=== PATIENT | male | born 1950 | race Caucasian/White ===

== ENCOUNTER 2018-02-14 11:24 | Inpatient (IN) | payer MEDICARE, BC ==
[~2018-02-14] VITALS: Ht 182.9 cm; Wt 83.9 kg
[2018-02-14] VITALS (10 sets, daily range): BP systolic 103–120; BP diastolic 57–82
[2018-02-14] MEDS ORDERED: IV NORMAL SALINE 1000 ML BAG IV ONE (11:30)
[2018-02-14] MEDS ORDERED: [UNRECOGNIZED DRUG - REMARK] (11:43)
[2018-02-14] MEDS ORDERED: ASPI81TA31 PO (11:43)
[2018-02-14 11:50] LABS: BASOPHILS # (AUTO) 0.1 K/uL (0.0-8.0); BASOPHILS % (AUTO) 0.9 % (0.0-2.0); EOSINOPHILS # (AUTO) 0.2 K/uL (0.0-0.7); EOSINOPHILS % (AUTO) 2.6 % (0.0-7.0); HEMATOCRIT 40.7 % (36.7-47.1); LYMPHOCYTES # (AUTO) 1.7 K/uL (20.0-40.0); LYMPHOCYTES % (AUTO) 27.1 % (20.5-51.5); MEAN CORPUSCULAR HEMOGLOBIN 31.2 uug (23.8-33.4); MEAN CORPUSCULAR HGB CONC 34 g/dL (32.5-36.3); MEAN CORPUSCULAR VOLUME 90.8 fL (73.0-96.2); MONOCYTES # (AUTO) 0.4 K/uL (2.0-10.0); MONOCYTES % (AUTO) 6.2 % (0.0-11.0); NEUTROPHILS # (AUTO) 3.9 K/uL (1.8-8.9); NEUTROPHILS % (AUTO) 63.2 % (38.5-71.5); PLATELET COUNT (AUTO) 85 K/uL (152-348); RED BLOOD CELL COUNT(AUTO) 4.49 MIL/uL (4.06-5.63); WHITE BLOOD COUNT (AUTO) 6.2 K/uL (3.6-10.2)
[2018-02-14 11:58] LABS: POTASSIUM 4.1 mmol/L (3.5-5.1)
[2018-02-14 12:04] LABS: BILIRUBIN,DIRECT 0.3 mg/dL (0.0-0.2); BILIRUBIN,TOTAL 1.7 mg/dL (0.2-1.0); TOTAL PROTEIN, SERUM 5.4 g/dL (6.4-8.2)
--- NOTE | 2018-02-14 12:26 | NUR ---
called [facility],talked to kim, regarding transfer the pt to [facility] per pt request.
--- NOTE | 2018-02-14 12:43 | NUR ---
Patient is resting comfortably on gurney with eyes closed, denies pains, calm & breathing easily with spouse at bedside.
[2018-02-14 13:14] LABS: BAND % (MANUAL) 1 % (0-10); EOSINOPHILS % (MANUAL) 3 % (0-8); LYMPHOCYTES % (MANUAL) 26 % (20-40); MONOCYTES % (MANUAL) 7 % (2-10); NEUTROPHILS % (MANUAL) 63 % (42-75)
--- NOTE | 2018-02-14 14:13 | NUR ---
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 PT HAD RECEIVED DILAUDID DURING RECOVERY, AND BECAME HYPOTENSIVE FOLLOWED BY [facility]. PT WAS BROUGHT BY AMBULANCE AFTER REVIVING THE PT. PT IS NOW ALERT , CONSCIOUS ORIENTEDX4. PT HAS A LT PERIPHERAL LINE G20, A RT CLYDE DRAIN WITH AND AN ARM SLING ON RT ARM.
[2018-02-14] MEDS ORDERED: ONDANSETRON 4 MG/2 ML VIAL IV PRN (14:15)
[2018-02-14] MEDS ORDERED: ACETAMINOPHEN 325 MG TABLET PO PRN (14:15)
[2018-02-14] MEDS ORDERED: MAGNESIUM HYDROXIDE 30 ML LIQUID UDC PO PRN (14:15)
[2018-02-14] MEDS ORDERED: Z GUARD REMEDY PASTE 57 GM TUBE TOP PRN (14:15)
--- NOTE | 2018-02-14 14:45 | NUR ---
PT ARRIVED TO CCU VIA STRETCHER, A CASE OF BRADYCARDIA.PT CONSCIOUS ORIENTEDX3, BREATHING VIA N/C @2LPM. 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
[2018-02-14 14:47] LABS: THYROID STIMULATING HORMONE 1.332 mIU/mL (0.358-3.740)
[2018-02-14] MEDS: IV NS 1000 ML 1,000 ML IV PRN ×2 (15:00→22:57)
--- NOTE | 2018-02-14 17:10 | NUR ---
SEEN BY DR BLOUNT, UPDATES GIVEN REGARDING PATIENTS CONDITION , PT ASSESSMENT DONE.
--- NOTE | 2018-02-14 18:30 | NUR ---
ASSESSMENT DONE FOR THE RT HAND , GOOD SENSATION IN FINGERS , PT DENIES ANY TINGLING SENSATION AND IS ABLE TO WIGGLE FINGERS.
--- NOTE | 2018-02-14 19:00 | NUR ---
REC'D REPORT FROM BREA SUTHERLAND RN FULL ASSESSMENT GIVEN TO JAIMEE LOCKWOOD RN.
--- NOTE | 2018-02-14 20:00 | NUR ---
ASSESSMENT DONE FOR THE RT HAND , GOOD SENSATION IN FINGERS , PT DENIES ANY TINGLING SENSATION AND IS ABLE TO WIGGLE FINGERS.
[2018-02-15] VITALS (14 sets, daily range): BP systolic 100–128; BP diastolic 41–91
--- NOTE | 2018-02-15 00:57 | NUR ---
AT 0057 MONITOR SHOWS HR 34 WITH SKIP BEAT PTS WAS AWAKE WATCHING SHOWS IN HIS LAP TAB, PTS DENIES CHEST PAIN,A/O X3 SAT 94% RR 18 BP 111/68.
[2018-02-15] MEDS: TRAMADOL HCL 50 MG TABLET PO PRN ×2 (01:58→10:59)
--- NOTE | 2018-02-15 02:00 | NUR ---
MONITOR SHOWS SB RATE 50 ASYMPTOMATIC PTS DENIES CP BP 118/68 A/OX3 ,WATCHING TV .
--- NOTE | 2018-02-15 02:18 | NUR ---
PTS C/O PAIN RIGHT ARM, RATE 5/10 TRAMADOL 50 MG PO GIVEN ASSESSMENT RT ARM ,DENIES NUMBNESS, NO TINGLING SENSATION ,WARM TO TOUCH, CAN WIGGLE THE FINGERS COLOR PINK.
--- NOTE | 2018-02-15 04:02 | NUR ---
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
[2018-02-15 04:58] LABS: BASOPHILS % (AUTO) 0.5 % (0.0-2.0); EOSINOPHILS # (AUTO) 0.1 K/uL (0.0-0.7); HEMATOCRIT 38.9 % (36.7-47.1); HEMOGLOBIN 13.2 g/dL (12.5-16.3); LYMPHOCYTES # (AUTO) 1.9 K/uL (20.0-40.0); MEAN CORPUSCULAR HEMOGLOBIN 30.2 uug (23.8-33.4); MEAN CORPUSCULAR HGB CONC 34 g/dL (32.5-36.3); MEAN CORPUSCULAR VOLUME 89.2 fL (73.0-96.2); MONOCYTES # (AUTO) 0.5 K/uL (2.0-10.0); MONOCYTES % (AUTO) 5.6 % (0.0-11.0); NEUTROPHILS # (AUTO) 6.6 K/uL (1.8-8.9); NEUTROPHILS % (AUTO) 71.9 % (38.5-71.5); PLATELET COUNT (AUTO) 89 K/uL (152-348); RED BLOOD CELL COUNT(AUTO) 4.37 MIL/uL (4.06-5.63); WHITE BLOOD COUNT (AUTO) 9.2 K/uL (3.6-10.2)
[2018-02-15 05:48] LABS: MAGNESIUM 1.9 mg/dL (1.8-2.4); PHOSPHOROUS 3.1 mg/dL (2.5-4.9); POTASSIUM 4.3 mmol/L (3.5-5.1)
--- NOTE | 2018-02-15 06:00 | NUR ---
Noted IV still running during laboratory draw; pt refused re-draw.
--- NOTE | 2018-02-15 06:15 | NUR ---
DR MINE Henao CARDIOLOGY CALLED FOR CONSULT . STILL WAITING FOR HIS CALL.
[2018-02-15] MEDS: IV NS 1000 ML 1,000 ML IV PRN (06:23)
[2018-02-15] MEDS ORDERED: PANTOPRAZOLE SODIUM 40 MG TABLET.DR PO SCH (07:00)
[2018-02-15 07:27] LABS: *BILIRUBIN,URIN NEGATIVE (NEGATIVE); *BLOOD, URINE NEGATIVE (NEGATIVE); *CLARITY,URINE CLEAR (CLEAR); *COLOR,URINE YELLOW (YELLOW); *KETONES,URINE NEGATIVE (NEGATIVE); *PROTEIN,URINE NEGATIVE (NEGATIVE); *UROBILINOGEN,URINE 0.2 E.U./dl (NORMAL); LEUKOCYTE ESTERASE ,URINE NEGATIVE (NEGATIVE); NITRITE, URINE NEGATIVE (NEGATIVE); PH,URINE 5.5 (5.0-8.0); UGLUCOSE NEGATIVE (NEGATIVE)
--- NOTE | 2018-02-15 07:30 | NUR ---
Upon initial report patient, patient found to be AAOX4 vitals signs stable no c/of pain. Remains bradycardic as reported, sbp within desired limits, no co/of pain. right upper extremity with warm to touch circulation and movement of fingers intact Jeff in place with scant blood drainage noted.
[2018-02-15 07:40] LABS: BACTERIA,URINE FEW /HPF (NONE SEEN); RBC,URINE NONE SEEN /HPF (0-3); SQUAMOUS EPITHELIAL CELL,UR FEW /HPF (NONE SEEN); WBC,URINE 0-3 /HPF (0-3)
--- NOTE | 2018-02-15 08:45 | NUR ---
At this time and per pt's request IV fluid infusion stopped. Patient verbalizing that IV infusion is only restricting his lue movements, he was educated on IV fluid need pt. also stated that I'm eating and drinking well. will be notified.
--- NOTE | 2018-02-15 10:09 | NUR ---
Pt.escorted to use facility. No events heart rate in the 60's and sbp wnl.
--- NOTE | 2018-02-15 11:34 | NUR ---
Jennifer Smith N.P. attending in the unit to see and examine patient, full report given, and had a meeting with pt. and family.
[2018-02-15] MEDS ORDERED: TRAM50TA PO (12:51)
[2018-02-15] MEDS ORDERED: ONDA4TAB5 PO (12:51)
--- NOTE | 2018-02-15 13:41 | NUR ---
DCD instructions and prescription provided to patient, and who remains at bedside. both pt. and verbalized understanding of dcd instructions. Pt. wheel down to lobby. left with rue CLYDE present and drained before leaving. informed of total CLYDE output during hospitalization. temp 98.5, Hr 61, sbp of 128/56. RR. 18
== END 2018-02-15 14:19 | disposition home or self-care (01) | DRG 641 ==
LOC: ER 11:24 → CCU 13:52
PROVIDERS: ADMIT Registered Nurse; ATTEND Registered Nurse
DX: E86.1 Hypovolemia (principal); R55 Syncope and collapse; T40.2X5A Adverse effect of other opioids, initial encounter; Y92.530 Ambulatory surgery center as the place of occurrence of the external cause; D69.6 Thrombocytopenia, unspecified; Z79.82 Long term (current) use of aspirin; E78.5 Hyperlipidemia, unspecified; E86.0 Dehydration; I44.0 Atrioventricular block, first degree; R00.1 Bradycardia, unspecified; R73.9 Hyperglycemia, unspecified; G56.21 Lesion of ulnar nerve, right upper limb
CPT/HCPCS: 36415; 70030-TC; 71045; 83735; 84100; 84443; 85025; 85730; 93005; 93307; A4663; J7030; J7120